=== PATIENT | male | born 1970 | race Caucasian/White ===

== ENCOUNTER 2017-11-18 00:32 | Emergency (ER) | payer BC ==
[2017-11-18] MEDS ORDERED: Rocephin 1000 MG INJ IM ONE (00:46)
[2017-11-18] MEDS ORDERED: TORAdol 30 mg Injection IM ONE (00:46)
[2017-11-18 00:47] VITALS: O2SAT 98
--- NOTE | 2017-11-18 00:50 | ERPHSYRPT ---
- History of Present Illness Time Seen by Provider: 11/18/17 00:47 Source: patient Physician History: c/o pain in left side of ear and jaw started 2 days ago and got worse today. no fever, no other symptoms Timing/Duration: day(s) Severity: moderate Associated Symptoms: denies symptoms Allergies/Adverse Reactions: amphotericin B liposome [From AmBisome] Allergy (Unverified 10/14/15 04:56) Home Medications: Gabapentin 200 mg PO TID 11/18/17 [History] Hx Tetanus, Diphtheria Vaccination/Date Given: Yes (2005) Hx Influenza Vaccination/Date Given: No Hx Pneumococcal Vaccination/Date Given: No - Review of Systems Constitutional: No Fever, No Chills Eyes: No Symptoms Ears, Nose, & Throat: No Symptoms, Mouth Swelling, Loose Teeth Respiratory: No Cough, No Dyspnea Cardiac: No Chest Pain, No Edema, No Syncope Abdominal/Gastrointestinal: No Abdominal Pain, No Nausea, No Vomiting, No Diarrhea Genitourinary Symptoms: No Dysuria Musculoskeletal: No Back Pain, No Neck Pain Skin: No Rash Neurological: No Dizziness, No Focal Weakness, No Sensory Changes Psychological: No Symptoms Endocrine: No Symptoms All Other Systems: Reviewed and Negative - Past Medical History Pertinent Past Medical History: No Neurological History: No Pertinent History ENT History: No Pertinent History Cardiac History: No Pertinent History Respiratory History: No Pertinent History Endocrine Medical History: No Pertinent History Musculoskeletal History: No Pertinent History GI Medical History: No Pertinent History History: No Pertinent History Psycho-Social History: No Pertinent History Male Reproductive Disorders: No Pertinent History - Past Surgical History Past Surgical History: No Neuro Surgical History: No Pertinent History Cardiac: No Pertinent History Respiratory: No Pertinent History Gastrointestinal: No Pertinent History Genitourinary: No Pertinent History Musculoskeletal: No Pertinent History Male Surgical History: No Pertinent History - Social History Smoking Status: Current every day smoker How long have you smoked: 30 Exposure to second hand smoke: No Drug Use: none Patient Lives Alone: No - Physical Exam General Appearance: no apparent distress, alert Eye Exam: PERRL/EOMI, eyes nml inspection Ears, Nose, Throat Exam: normal ENT inspection, TMs normal, pharynx normal, moist mucous membranes, other (molar tooth decay on left lower tooth) Neck Exam: normal inspection, non-tender, supple, full range of motion Respiratory Exam: normal breath sounds, lungs clear, No respiratory distress Cardiovascular Exam: regular rate/rhythm, normal heart sounds, normal peripheral pulses Gastrointestinal/Abdomen Exam: soft, normal bowel sounds, No tenderness, No mass Back Exam: normal inspection, normal range of motion, No CVA tenderness, No vertebral tenderness Extremity Exam: normal inspection, normal range of motion, pelvis stable Neurologic Exam: alert, oriented x 3, cooperative, normal mood/affect, nml cerebellar function, nml station & gait, sensation nml, No motor deficits Skin Exam: normal color, warm, dry, No rash Lymphatic Exam: No adenopathy - Course Nursing assessment & vital signs reviewed: Yes Ordered Tests: Medication Summary Generic Name Dose Route Start Last Admin Trade Name Freq PRN Reason Stop Dose Admin Ceftriaxone Sodium 1,000 mg 11/18/17 00:46 Rocephin 1000 Mg Inj IM 11/18/17 00:47 STAT ONE Ketorolac Tromethamine 60 mg 11/18/17 00:46 Toradol 30 Mg Injection IM 11/18/17 00:47 STAT ONE - Progress Progress: improved, pain not gone completely Counseled pt/family regarding: diagnosis, need for follow-up (with dentist JAKI) - Departure Time of Disposition: 00:50 Departure Disposition: Home Clinical Impression: Dental abscess Condition: Stable Critical Care Time: No Referrals: TRACY FARMER [Primary Care Provider] - Instructions: Tooth Abscess (DC), Tooth Decay, Adult (DC), Dental Pain (DC) Additional Instructions: Please follow the instructions given to you. Please take your medication as prescribed if given. If symptoms recur or get worse, come back to the emergency room if you cannot reach your primary care physician, or call your primary care physician for an appointment. Again if your symptoms get worse, come back to the emergency room. Thanks for visiting emergency room, and let us take care of you. Prescriptions: Amoxicillin 500 mg PO TID #30 tablet Naproxen 375 mg [Naprosyn 375 mg] 375 mg PO Q8H #30 tablet
[2017-11-18] MEDS ORDERED: XYLOCAINE 1% HCL 20 ML MDV ONE (00:53)
[2017-11-18] MEDS ORDERED: TORAdol 30 mg Injection ONE (00:53)
[2017-11-18] MEDS ORDERED: Rocephin 1000 MG INJ ONE (00:53)
[2017-11-18 01:25] VITALS: BP 128/76; PULSE 84
== END 2017-11-18 01:23 | disposition home or self-care (01) ==
LOC: ED 00:32
DX: K04.7 Periapical abscess without sinus (principal)
CPT/HCPCS: 96372; 99284; J0696; J1885

== ENCOUNTER 2018-10-12 09:33 | Emergency (ER) | payer BC ==
[2018-10-12 09:50] VITALS: BP 127/87; PULSE 81; O2SAT 97
[2018-10-12] MEDS ORDERED: Rocephin 1000 MG INJ IM ONE (09:56)
[2018-10-12] MEDS ORDERED: Rocephin 1000 MG INJ ONE (09:57)
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
== END 2018-10-12 10:23 | disposition home or self-care (01) ==
LOC: ED 09:33
DX: L03.811 Cellulitis of head [any part, except face] (principal); L02.811 Cutaneous abscess of head [any part, except face]; L03.211 Cellulitis of face; W57.XXXA Bitten or stung by nonvenomous insect and other nonvenomous arthropods, initial encounter
CPT/HCPCS: 96372; 99283; J0696

== ENCOUNTER 2022-01-05 18:50 | Emergency (ER) | payer BC ==
[2022-01-05] MEDS ORDERED: TORAdol 30 mg Injection IM ONE (20:15)
[2022-01-05] MEDS ORDERED: Norflex 60 MG/2 ML IM ONE (20:15)
[2022-01-05] MEDS ORDERED: TORAdol 30 mg Injection ONE (20:15)
[2022-01-05] MEDS ORDERED: Norflex 60 MG/2 ML ONE (20:15)
--- NOTE | 2022-01-05 20:20 | ERPHSYRPT ---
- History of Present Illness Time Seen by Provider: 01/05/22 19:06 Source: patient Exam Limitations: no limitations Patient Subjective Stated Complaint: pt states his had a seizure and he was trying to hold her up and exacerbated his rt hip pain. rates pain 8/10 at this time. pt states he has been told he has sciatica, a slightly dislocated hip, and bone spurs. Triage Nursing Assessment: pt alert and oriented, answers questions approp. pt ambulatory with limping gait noted. skin warm and dry. respirations nonlabored. pedal pulse and cap refill to rle wnl. Physician History: 51-year-old male with history of chronic back and hip pain presented in the ER with chief complaint of worsening right hip pain after he was lifting his who was having seizure and reports he overdid it and pulled it really hard. Pain is moderate to severe sharp, more with ambulation and better with resting and certain position. No limitation range of motion of right hip. Denies any fall or direct injury to hip or back. No numbness tingling or weakness of lower extremity. Denies any loss of bowel or bladder control. Pain is similar to previous episodes. Method of Injury: twisted Occurred: just prior to arrival Quality: sharpness Severity of Pain-Max: severe Severity of Pain-Current: severe Lower Extremities Pain: hip: right Modifying Factors: Improves With: rest. Worsens With: movement Associated Symptoms: No unable to bear weight, No snapping sensation, No popping sensation Allergies/Adverse Reactions: allantoin [From Orajel] Allergy (Verified 01/05/22 19:22) Anaphylactic Reaction benzalkonium chloride [From Orajel] Allergy (Verified 01/05/22 19:22) Anaphylactic Reaction benzocaine [From Orajel] Allergy (Verified 01/05/22 19:22) Anaphylactic Reaction carbamide peroxide [From Orajel] Allergy (Verified 01/05/22 19:22) Anaphylactic Reaction zinc chloride [From Orajel] Allergy (Verified 01/05/22 19:22) Anaphylactic Reaction Home Medications: Gabapentin 600 mg PO TID 11/18/17 [History] Cyclobenzaprine HCl 10 mg [Cyclobenzaprine 10 MG] 10 mg PO TIDPRN 01/05/22 [History] Hydrocodone/Acetaminophen [Hydrocodone-Acetamin 7.5-325] 1 each PO TID 01/05/22 [History] Hx Tetanus, Diphtheria Vaccination/Date Given: Yes Hx Influenza Vaccination/Date Given: No Hx Pneumococcal Vaccination/Date Given: No Immunizations Up to Date: Yes Travel Risk - International Travel Have you traveled outside of the country in past 3 weeks: No - Coronavirus Screening Are you exhibiting any of the following symptoms?: No Close contact with a COVID-19 positive Pt in past 14-21 Days: No - Vaccine Status Have you recieved a Covid-19 vaccination: No - Review of Systems Constitutional: No Symptoms Ears, Nose, & Throat: No Symptoms Respiratory: No Symptoms Cardiac: No Symptoms Abdominal/Gastrointestinal: No Symptoms Genitourinary Symptoms: No Symptoms Musculoskeletal: Back Pain, Joint Pain Skin: No Symptoms Neurological: No Symptoms Endocrine: No Symptoms Immunological/Allergic: No Symptoms - Past Medical History Pertinent Past Medical History: Yes Neurological History: No Pertinent History ENT History: No Pertinent History Cardiac History: No Pertinent History Respiratory History: No Pertinent History Endocrine Medical History: No Pertinent History Musculoskeletal History: No Pertinent History GI Medical History: No Pertinent History History: No Pertinent History Psycho-Social History: No Pertinent History Male Reproductive Disorders: No Pertinent History Other Medical History: back pain, hip pain, sciatica - Past Surgical History Past Surgical History: No Neuro Surgical History: No Pertinent History Cardiac: No Pertinent History Respiratory: No Pertinent History Gastrointestinal: No Pertinent History Genitourinary: No Pertinent History Musculoskeletal: No Pertinent History Male Surgical History: No Pertinent History - Social History Smoking Status: Current every day smoker How long have you smoked: 30+ Exposure to second hand smoke: Yes Drug Use: none Patient Lives Alone: No - Nursing Vital Signs Nursing Vital Signs: Initial Vital Signs Temperature 97.2 F 01/05/22 19:10 Pulse Rate 113 H 01/05/22 19:10 Respiratory Rate 20 01/05/22 19:10 Blood Pressure 132/95 01/05/22 19:10 O2 Sat by Pulse Oximetry 94 L 01/05/22 19:10 Pain Scale Pain Intensity 6 - Physical Exam General Appearance: no apparent distress, alert Eyes, Ears, Nose, Throat Exam: normal ENT inspection Neck Exam: normal inspection, full range of motion Cardiovascular/Respiratory Exam: normal breath sounds, regular rate/rhythm Gastrointestinal/Abdominal Exam: non-tender, soft, no organomegaly Back Exam: normal inspection, normal range of motion, muscle spasm, point tenderness (Right sacroiliac area), No CVA tenderness, No vertebral tenderness Hips Exam: right: pain, soft tissue tenderness, left: non-tender, bilateral: normal inspection, normal range of motion, no evidence of injury Legs Exam: bilateral leg: non-tender, normal inspection, normal range of motion Neuro/Tendon Exam: normal sensation, normal motor functions, normal tendon functions, no evidence tendon injury Mental Status Exam: alert, oriented x 3, cooperative Skin Exam: normal color SpO2 Interpretation: normal SpO2: 93 O2 Delivery: Room Air Ordered Tests: Medication Summary Discontinued Medications Generic Name Dose Route Start Last Admin Trade Name Freq PRN Reason Stop Dose Admin Ketorolac Tromethamine 30 mg 01/05/22 20:15 01/05/22 20:16 Ketorolac Tromethamine 30 Mg/Ml Inj IM 01/05/22 20:16 30 mg STAT ONE Administration Ketorolac Tromethamine Confirm 01/05/22 20:15 Ketorolac Tromethamine 30 Mg/Ml Inj Administered 01/05/22 20:16 Dose 30 mg .ROUTE .STK-MED ONE Orphenadrine Citrate 60 mg 01/05/22 20:15 01/05/22 20:16 Orphenadrine Citrate 60 Mg/2 Ml Vial IM 01/05/22 20:16 60 mg STAT ONE Administration Orphenadrine Citrate Confirm 01/05/22 20:15 Orphenadrine Citrate 60 Mg/2 Ml Vial Administered 01/05/22 20:16 Dose 60 mg .ROUTE .STK-MED ONE - Progress Progress: improved, re-examined Progress Note: 01/05/22 21:13 51-year-old is evaluated for right hip pain after he pulled his with seizing with worsening of hip and back pain. Negative neuro exam in lower extremities. Given Toradol and Norflex, on reevaluation his symptoms are improved and is able to move his leg in all direction without any limitation and rates 1/10 intensity pain. Do not think needs any imaging, recommended continue with pain medication muscle relaxant which she has at home and outpatient follow-up. Discussed signs symptoms of worsening needing return to ER which he seems understanding. Patient does have appointment with pain management and physical therapy which she is encouraged to keep. Counseled pt/family regarding: diagnosis, need for follow-up - Departure Departure Disposition: Home Clinical Impression: Low back strain, Strain of right hip Condition: Stable Critical Care Time: No Referrals: [facility] [employer] [Primary Care Provider] - Follow up/PCP as directed (1-2 days for reevaluation) Instructions: Back Muscle Strain (DC) Additional Instructions: Continue with your current pain medication and muscle relaxant which you have at home as recommended. Follow-up with primary care and pain management. Keep appointment with physical therapy. Return to ER for intractable pain, numbness tingling weakness of lower extremities/loss of bowel or bladder control.
[2022-01-05 21:09] VITALS: BP 152/98; PULSE 95
[2022-01-05 21:16] VITALS: O2SAT 93
== END 2022-01-05 21:24 | disposition home or self-care (01) ==
LOC: ED 18:50
DX: S76.011A Strain of muscle, fascia and tendon of right hip, initial encounter (principal); S39.012A Strain of muscle, fascia and tendon of lower back, initial encounter; X50.9XXA Other and unspecified overexertion or strenuous movements or postures, initial encounter; Z79.899 Other long term (current) drug therapy
CPT/HCPCS: 96372; 99283; J1885; J2360